=== PATIENT | male | born 1985 | race Caucasian/White ===

== ENCOUNTER 2016-07-25 22:05 | Emergency (ER) | payer OTHER ==
[2016-07-26 03:59] VITALS: BP 146/84
== END 2016-07-26 03:59 | disposition home or self-care (01) ==
LOC: ED 22:05
DX: S31.030A Puncture wound without foreign body of lower back and pelvis without penetration into retroperitoneum, initial encounter (principal); M79.604 Pain in right leg; J45.909 Unspecified asthma, uncomplicated; Z79.899 Other long term (current) drug therapy; W26.0XXA Contact with knife, initial encounter; Y93.89 Activity, other specified; Y92.89 Other specified places as the place of occurrence of the external cause; Y99.8 Other external cause status
CPT/HCPCS: 90715

== ENCOUNTER 2016-11-09 22:01 | Emergency (ER) | payer OTHER ==
[2016-11-09 23:23] VITALS: BP 136/77
== END 2016-11-09 23:23 | disposition home or self-care (01) ==
LOC: ED 22:01
DX: L03.111 Cellulitis of right axilla (principal)

== ENCOUNTER 2019-10-01 21:30 | Emergency (ER) | payer MEDICAID ==
[~2019-10-01] VITALS: Ht 175.3 cm; Wt 94.3 kg
[2019-10-01 21:39] VITALS: Ht 175.3 cm; Wt 94.3 kg
[2019-10-01 22:15] VITALS: BP 111/84
== END 2019-10-01 22:15 | disposition home or self-care (01) ==
LOC: ED 21:30
DX: L03.113 Cellulitis of right upper limb (principal); J45.909 Unspecified asthma, uncomplicated
CPT/HCPCS: J2930

== ENCOUNTER 2019-10-11 21:40 | Emergency (ER) | payer MEDICAID, SELFPAY ==
[~2019-10-11] VITALS: Ht 175.3 cm; Wt 90.7 kg
[2019-10-11 21:41] VITALS: Ht 175.3 cm; Wt 90.7 kg
[2019-10-12 00:15] VITALS: BP 116/73
== END 2019-10-12 00:15 | disposition home or self-care (01) ==
LOC: ED 21:40
DX: U07.1 COVID-19 (principal); J45.909 Unspecified asthma, uncomplicated
CPT/HCPCS: U0003-CS

== ENCOUNTER 2020-02-09 13:44 | Emergency (ER) | payer MEDICAID ==
[~2020-02-09] VITALS: Ht 175.3 cm; Wt 95.3 kg
[2020-02-09 13:47] VITALS: BP 140/100; Ht 175.3 cm; Wt 95.3 kg
== END 2020-02-09 14:25 | disposition home or self-care (01) ==
LOC: ED 13:44
DX: M79.10 Myalgia, unspecified site (principal); R51.9 Headache, unspecified; J45.909 Unspecified asthma, uncomplicated; Z20.828 Contact with and (suspected) exposure to other viral communicable diseases; Z98.890 Other specified postprocedural states
CPT/HCPCS: U0003

== ENCOUNTER 2020-06-16 20:15 | Emergency (ER) | payer MEDICAID ==
[~2020-06-16] VITALS: Ht 175.3 cm; Wt 101.3 kg
[2020-06-16 20:32] VITALS: BP 134/86; Ht 175.3 cm; Wt 101.3 kg
[2020-06-16] MEDS ORDERED: DIPHENHYDRAMINE25 M3 PO (22:06)
[2020-06-16] MEDS ORDERED: MOT600 PO (22:06)
[2020-06-16] MEDS ORDERED: ACETAMINOPHEN500 M5 PO (22:06)
[2020-06-16] MEDS ORDERED: REGLAN5 M1 PO (22:06)
== END 2020-06-16 23:03 | disposition home or self-care (01) ==
LOC: ED 20:15
DX: H57.89 Other specified disorders of eye and adnexa (principal); R51.9 Headache, unspecified; J45.909 Unspecified asthma, uncomplicated; Z98.890 Other specified postprocedural states
CPT/HCPCS: J1885; J8597